=== PATIENT | female | born 1970 | race African-American/Black ===

== ENCOUNTER 2018-01-23 08:10 | Emergency (ER) | payer OTHER ==
[~2018-01-23] VITALS: Ht 170.2 cm; Wt 63.6 kg
[~2018-01-23 08:10] MED LIST: NO MEDS
[2018-01-23] MEDS ORDERED: METR500 PO (08:17)
[2018-01-23] MEDS ORDERED: MORP15 PO (08:17)
[2018-01-23] MEDS ORDERED: IBUP-2070 PO (08:17)
[2018-01-23] MEDS ORDERED: HYDROmorphone 2 MG/ML SYRINGE IVP ONE (09:00)
[2018-01-23] MEDS ORDERED: KETOROLAC TROMETHAMINE 30 MG/ML VIAL IVP ONE (09:00)
[2018-01-23] MEDS ORDERED: ONDANSETRON HCL 4 MG/2 ML VIAL IVP ONE (09:00)
[2018-01-23] MEDS ORDERED: SODIUM CHLORIDE 0.9% 1,000 ML IV ONE (09:00)
[2018-01-23 09:11] LABS: BASOPHILS % (AUTO) 0.3 % (0.0-2.0); EOSINOPHILS % (AUTO) 3.9 % (1.0-6.0); HEMATOCRIT 33.8 % (36-46); HEMOGLOBIN 11.3 g/dL (12.0-16.0); LYMPHOCYTES # (AUTO) 0.7 K/uL (1.0-4.8); MEAN CORPUSCULAR HEMOGLOBIN 28.2 pg (26.0-34.0); MEAN CORPUSCULAR HGB CONC 33.6 G/dL (31.0-37.0); MEAN CORPUSCULAR VOLUME 84 fL (80-100); MONOCYTES # (AUTO) 0.5 K/uL (0.1-1.0); MONOCYTES % (AUTO) 5.8 % (2.0-9.0); NEUTROPHILS # (AUTO) 7.4 K/uL (1.8-7.7); PLATELET COUNT (AUTO) 234 K/uL (150-450); RED BLOOD CELL COUNT(AUTO) 4.03 MIL/uL (4.00-5.20); RED CELL DISTRIBUTION WIDTH 15.2 % (11.5-14.5)
[2018-01-23 09:36] LABS: ALANINE AMINOTRANSFERASE 54 U/L (12-78); ALBUMIN 2.8 g/dL (3.4-5.0); ALKALINE PHOSPHATASE 99 U/L (46-116); ANION GAP 5 mmol/L (8-16); ASPARTATE AMINOTRANSFERASE 46 U/L (15-37); BILIRUBIN,TOTAL 0.2 mg/dL (0.1-1.0); CALCIUM, TOTAL 8.3 mg/dL (8.8-10.5); CARBON DIOXIDE 28 mmol/L (22-29); CHLORIDE 101 mmol/L (98-107); CREATININE 0.74 mg/dL (0.60-1.30); GLOMERULAR FILTR. RATE CALC > 60 mL/min (>60); GLUCOSE,RANDOM 98 mg/dL (70-110); SODIUM SERUM 134 mmol/L (136-145); TOTAL PROTEIN, SERUM 6.7 g/dL (6.4-8.2); UREA NITROGEN, BLOOD 7 mg/dL (7-18)
[2018-01-23 10:42] LABS: APPEARANCE,URINE CLOUDY (CLEAR); BILIRUBIN,URINE NEGATIVE (NEGATIVE); GLUCOSE, URINE (UA) NEGATIVE (NEGATIVE); KETONES,URINE NEGATIVE (NEGATIVE); LEUKOCYTE ESTERASE ,URINE SMALL (NEGATIVE); NITRATE,URINE POSITIVE (NEGATIVE); OCCULT BLOOD,URINE LARGE (NEGATIVE); PROTEIN,URINE TRACE (NEGATIVE)
[2018-01-23 11:02] LABS: BACTERIA,URINE Many /HPF (None Seen); SQUAMOUS EPITHELIAL CELL,UR Few /LPF (None Seen)
[2018-01-23 11:27] VITALS: BP 125/80
== END 2018-01-23 12:11 | disposition home or self-care (01) ==
LOC: EMS 08:10
DX: D25.9 Leiomyoma of uterus, unspecified (principal); N39.0 Urinary tract infection, site not specified; J45.909 Unspecified asthma, uncomplicated; F17.210 Nicotine dependence, cigarettes, uncomplicated
CPT/HCPCS: 36415; 80053; 81001; 83605; 84703; 85025; 87077; 87086; 87186; 87491; 87591; 96374; 96375; 99284; J1170; J1885; J2405; J7030

== ENCOUNTER 2019-08-07 22:29 | Emergency (ER) | payer OTHER ==
[~2019-08-07] VITALS: Ht 170.2 cm; Wt 78.6 kg
[~2019-08-07 22:29] MED LIST changes: +IBUP-2070 PO; +METR500 PO; +MORP15 PO
[2019-08-07] MEDS ORDERED: IPRATROPIUM BROMIDE 0.5 MG/2.5 ML NEB SOLUTION NEB ONE ×2 (22:45→23:15)
[2019-08-07] MEDS ORDERED: ALBUTEROL SULFATE 2.5 MG/0.5 ML NEB SOLUTION NEB ONE (22:45)
[2019-08-07] MEDS ORDERED: 0.9% SODIUM CHLORIDE 5 ML NEB SOLUTION NEB ONE ×2 (22:59→23:12)
[2019-08-07] MEDS ORDERED: ALBUTEROL SULFATE 5 MG/ML 20 ML NEB SOLN [BULK] NEB ONE (23:15)
[2019-08-07] MEDS ORDERED: EPINEPHrine 1:1,000 [1 MG/ML] AMP SQ ONE (23:15)
[2019-08-07] MEDS ORDERED: MethylPREDNISolone SOD SUCC 125 MG/2 ML VIAL IVP ONE (23:15)
[2019-08-07 23:28] LABS: BASOPHILS % (AUTO) 0.5 % (0.0-2.0); EOSINOPHILS % (AUTO) 4.5 % (1.0-6.0); HEMATOCRIT 29.1 % (36-46); HEMOGLOBIN 9.5 g/dL (12.0-16.0); LYMPHOCYTES # (AUTO) 2.4 K/uL (1.0-4.8); LYMPHOCYTES % (AUTO) 31.3 % (22.0-44.0); MEAN CORPUSCULAR HEMOGLOBIN 25.5 pg (26.0-34.0); MEAN CORPUSCULAR HGB CONC 32.7 G/dL (31.0-37.0); MEAN CORPUSCULAR VOLUME 78 fL (80-100); MONOCYTES # (AUTO) 0.7 K/uL (0.1-1.0); MONOCYTES % (AUTO) 9.7 % (2.0-9.0); PLATELET COUNT (AUTO) 383 K/uL (150-450); RED BLOOD CELL COUNT(AUTO) 3.74 MIL/uL (4.00-5.20); RED CELL DISTRIBUTION WIDTH 16.6 % (11.5-14.5)
[2019-08-07 23:39] LABS: ANION GAP 12 mmol/L (8-16); CALCIUM, TOTAL 8.8 mg/dL (8.8-10.5); CARBON DIOXIDE 23 mmol/L (22-29); CHLORIDE 105 mmol/L (98-107); CREATININE 0.83 mg/dL (0.60-1.30); GLOMERULAR FILTR. RATE CALC > 60 mL/min (>60); GLUCOSE,RANDOM 71 mg/dL (70-110); POTASSIUM 3.2 mmol/L (3.5-5.1); SODIUM SERUM 140 mmol/L (136-145); UREA NITROGEN, BLOOD 19 mg/dL (7-18)
[2019-08-07 23:51] LABS: HCG,QUANTITATIVE < 1 mIU/mL (0-6)
[2019-08-08 02:00] VITALS: BP 129/77
== END 2019-08-08 02:35 | disposition home or self-care (01) ==
LOC: EMS 22:32
DX: J45.901 Unspecified asthma with (acute) exacerbation (principal); F17.210 Nicotine dependence, cigarettes, uncomplicated; Z98.890 Other specified postprocedural states
CPT/HCPCS: 36415; 71045; 80048; 84702; 85025; 94640; 94644; 96372; 96374; 99285; 99406; J0171; J2930

== ENCOUNTER 2019-12-28 07:21 | Emergency (ER) | payer OTHER ==
[~2019-12-28] VITALS: Ht 170.2 cm; Wt 80.5 kg
[2019-12-28 10:10] VITALS: BP 134/79
== END 2019-12-28 10:15 | disposition home or self-care (01) ==
LOC: EMS 07:25
DX: S83.92XA Sprain of unspecified site of left knee, initial encounter (principal); J45.909 Unspecified asthma, uncomplicated; F17.210 Nicotine dependence, cigarettes, uncomplicated; W01.0XXA Fall on same level from slipping, tripping and stumbling without subsequent striking against object, initial encounter; Y93.89 Activity, other specified; Y92.89 Other specified places as the place of occurrence of the external cause; Y99.8 Other external cause status
CPT/HCPCS: 29505

== ENCOUNTER 2020-04-12 00:17 | Emergency (ER) | payer OTHER ==
[~2020-04-12] VITALS: Ht 170.2 cm; Wt 79.5 kg
[2020-04-12] MEDS ORDERED: IPRA4AER IH (00:27)
[2020-04-12] MEDS ORDERED: ALBUTEROL SULFATE 5 MG/ML 20 ML NEB SOLN [BULK] NEB ONE ×2 (00:32→00:45)
[2020-04-12] MEDS ORDERED: IPRATROPIUM BROMIDE 0.5 MG/2.5 ML NEB SOLUTION NEB ONE ×2 (00:32→00:45)
[2020-04-12] MEDS ORDERED: MethylPREDNISolone SOD SUCC 125 MG/2 ML VIAL IVP ONE (00:45)
[2020-04-12 02:36] VITALS: BP 134/72
[2020-04-12] MEDS ORDERED: ALBUTEROL SULFATE HFA 90 MCG/PUFF 8 GM INHALER IH ONE (02:45)
== END 2020-04-12 02:47 | disposition home or self-care (01) ==
LOC: EMS 00:19
DX: J45.901 Unspecified asthma with (acute) exacerbation (principal); F17.210 Nicotine dependence, cigarettes, uncomplicated
CPT/HCPCS: 71045; 94640; 96374; 99284; J2930; 94644; J3535; J7611

== ENCOUNTER 2021-01-16 20:31 | Emergency (ER) | payer OTHER ==
[~2021-01-16] VITALS: Ht 170.2 cm; Wt 77.3 kg
[~2021-01-16 20:31] MED LIST changes: -IBUP-2070 PO; +IPRA4AER IH; -METR500 PO; -MORP15 PO; -NO MEDS
[2021-01-16 23:15] LABS: BASOPHILS % (AUTO) 0.9 % (0.0-2.0); EOSINOPHILS % (AUTO) 8.5 % (1.0-6.0); LYMPHOCYTES # (AUTO) 1.4 K/uL (1.0-4.8); LYMPHOCYTES % (AUTO) 26.7 % (22.0-44.0); MEAN CORPUSCULAR HEMOGLOBIN 25.9 pg (26.0-34.0); MEAN CORPUSCULAR HGB CONC 32.1 G/dL (31.0-37.0); MEAN CORPUSCULAR VOLUME 81 fL (80-100); MONOCYTES # (AUTO) 0.5 K/uL (0.1-1.0); MONOCYTES % (AUTO) 9.8 % (2.0-9.0); NEUTROPHILS # (AUTO) 2.7 K/uL (1.8-7.7); NEUTROPHILS % (AUTO) 54.1 % (40.0-70.0); PLATELET COUNT (AUTO) 440 K/uL (150-450); RED CELL DISTRIBUTION WIDTH 17.7 % (11.5-14.5)
[2021-01-16 23:25] LABS: ANION GAP 10 mmol/L (8-16); CALCIUM, TOTAL 8.6 mg/dL (8.8-10.5); CARBON DIOXIDE 26 mmol/L (22-29); CHLORIDE 107 mmol/L (98-107); CREATININE 0.77 mg/dL (0.60-1.30); GLOMERULAR FILTR. RATE CALC > 60 mL/min (>60); GLUCOSE,RANDOM 79 mg/dL (70-110); POTASSIUM 3.2 mmol/L (3.5-5.1); SODIUM SERUM 143 mmol/L (136-145); UREA NITROGEN, BLOOD 16 mg/dL (7-18)
[2021-01-16 23:41] LABS: ALANINE AMINOTRANSFERASE 21 U/L (12-78); ALBUMIN 3.3 g/dL (3.4-5.0); ALKALINE PHOSPHATASE 62 U/L (46-116); ASPARTATE AMINOTRANSFERASE 20 U/L (15-37); BILIRUBIN,TOTAL 0.5 mg/dL (0.1-1.0); FREE T4 (FREE THYROXINE) 1.05 ng/dL (0.76-1.46); HCG,QUANTITATIVE < 1 mIU/mL (0-6); THYROID STIMULATING HORMONE 0.57 uIU/mL (0.36-3.74); TOTAL PROTEIN, SERUM 6.6 g/dL (6.4-8.2)
[2021-01-17 01:14] VITALS: BP 130/80
== END 2021-01-17 01:29 | disposition home or self-care (01) ==
LOC: EMS 20:33
DX: D50.9 Iron deficiency anemia, unspecified (principal)
CPT/HCPCS: 71045; 80053; 83880; 84439; 84443; 84484; 84702; 85025; 85379; 93005; 93970; 99285; 36415-L1; 36415-TC

== ENCOUNTER 2021-07-31 17:48 | Emergency (ER) | payer OTHER ==
[~2021-07-31] VITALS: Ht 170.2 cm; Wt 77.3 kg
[2021-07-31 19:15] VITALS: BP 169/106
== END 2021-08-01 01:50 | disposition left against medical advice (07) ==
LOC: EMS 17:50
DX: K08.89 Other specified disorders of teeth and supporting structures (principal); Z53.21 Procedure and treatment not carried out due to patient leaving prior to being seen by health care provider

== ENCOUNTER 2022-09-01 23:33 | Emergency (ER) | payer OTHER ==
[~2022-09-01] VITALS: Ht 170.2 cm; Wt 81.8 kg
[2022-09-01] MEDS ORDERED: KETOROLAC TROMETHAMINE 30 MG/ML VIAL IVP ONE (23:45)
[2022-09-02] MEDS ORDERED: SODIUM CHLORIDE 0.9% 100 ML ONE (00:04)
[2022-09-02] MEDS ORDERED: IOHEXOL 350 MG/ML 100 ML VIAL ONE (00:04)
[2022-09-02 00:11] LABS: BASOPHILS % (AUTO) 0.7 % (0.0-2.0); EOSINOPHILS % (AUTO) 1.1 % (1.0-6.0); HEMATOCRIT 32.7 % (36-46); HEMOGLOBIN 10.6 g/dL (12.0-16.0); LYMPHOCYTES # (AUTO) 1.5 K/uL (1.0-4.8); LYMPHOCYTES % (AUTO) 17.9 % (22.0-44.0); MEAN CORPUSCULAR HGB CONC 32.4 G/dL (31.0-37.0); MEAN CORPUSCULAR VOLUME 80 fL (80-100); MONOCYTES # (AUTO) 0.7 K/uL (0.1-1.0); MONOCYTES % (AUTO) 8.3 % (2.0-9.0); NEUTROPHILS # (AUTO) 6.2 K/uL (1.8-7.7); PLATELET COUNT (AUTO) 324 K/uL (150-450); RED BLOOD CELL COUNT(AUTO) 4.07 MIL/uL (4.00-5.20); RED CELL DISTRIBUTION WIDTH 14.9 % (11.5-14.5)
[2022-09-02 00:14] LABS: ANION GAP 12 mmol/L (8-16); CALCIUM, TOTAL 9.5 mg/dL (8.8-10.5); CARBON DIOXIDE 24 mmol/L (22-29); CHLORIDE 105 mmol/L (98-107); CREATININE 0.98 mg/dL (0.60-1.30); GLOMERULAR FILTR. RATE CALC > 60 mL/min (>60); GLUCOSE,RANDOM 94 mg/dL (70-110); POTASSIUM 3.9 mmol/L (3.5-5.1); SODIUM SERUM 141 mmol/L (136-145); UREA NITROGEN, BLOOD 18 mg/dL (7-18)
[2022-09-02 00:25] LABS: ALANINE AMINOTRANSFERASE 19 U/L (12-78); ALKALINE PHOSPHATASE 104 U/L (46-116); ASPARTATE AMINOTRANSFERASE 22 U/L (15-37); BILIRUBIN,TOTAL 0.4 mg/dL (0.1-1.0); HCG,QUANTITATIVE 3 mIU/mL (0-6); TOTAL PROTEIN, SERUM 8.3 g/dL (6.4-8.2)
[2022-09-02] MEDS ORDERED: IBUP-1492 PO (01:00)
[2022-09-02] MEDS ORDERED: AMOX1TAB16 PO (01:00)
[2022-09-02] MEDS ORDERED: AMOX TR/POT CLAV 875 MG/125 MG TABLET PO ONE (01:00)
[2022-09-02 01:53] VITALS: BP 159/99
== END 2022-09-02 02:21 | disposition home or self-care (01) ==
LOC: EMS 23:34
DX: K08.89 Other specified disorders of teeth and supporting structures (principal); J45.909 Unspecified asthma, uncomplicated; I10 Essential (primary) hypertension; F17.210 Nicotine dependence, cigarettes, uncomplicated; Z98.890 Other specified postprocedural states
CPT/HCPCS: 99285; 80053; 84702; 85025; 36415; 96374; 70487; J1885; Q9967; J7050

== ENCOUNTER 2024-06-04 23:06 | Inpatient (IN) | payer OTHER, MEDICAID ==
[~2024-06-04] VITALS: Ht 170.2 cm; Wt 85.7 kg
[~2024-06-04 23:06] MED LIST changes: +AMOX-457 PO; +IBUP-1492 PO
[2024-06-04] MEDS ORDERED: ZOLPIDEM TARTRATE 10 MG TABLET PO PRN ×2 (23:30→23:45)
[2024-06-04] MEDS ORDERED: HALOPERIDOL 5 MG TABLET PO PRN ×2 (23:30→23:45)
[2024-06-04] MEDS ORDERED: LORazepam 2 MG TABLET PO PRN (23:30)
[2024-06-05 02:21] LABS: GLUCOMETER DEV NAME(LOC) POC.BV; POC SARS-COV2 AG, FIA NEGATIVE (NEGATIVE)
[2024-06-05 02:25] VITALS: RESP 18
[2024-06-05] MEDS: LORazepam 2 MG/ML VIAL IM ONE (02:51)
[2024-06-05] MEDS: DiphenhydrAMINE HCL 50 MG/ML VIAL IM ONE (02:52)
[2024-06-05] MEDS: ChlorproMAZINE HCL 50 MG/2 ML AMP IM ONE (02:52)
[2024-06-05] MEDS ORDERED: CloNIDine HCL 0.1 MG TABLET PO PRN (05:15)
[2024-06-05] MEDS ORDERED: IBUPROFEN 600 MG TABLET PO PRN (05:15)
[2024-06-05] MEDS ORDERED: MAGNESIUM HYDROXIDE SUSPENSION 30 ML UDCUP PO PRN (05:15)
[2024-06-05] MEDS ORDERED: MAG HYDROX/ALUMINUM HYD/SIMETH ES 30 ML SUSPENSION UDCUP PO PRN (05:15)
[2024-06-05] MEDS ORDERED: LOPERAMIDE HCL 2 MG CAPSULE PO PRN (05:15)
[2024-06-05] MEDS ORDERED: ACETAMINOPHEN 325 MG TABLET PO PRN (05:15)
[2024-06-05] MEDS ORDERED: ONDANSETRON 4 MG TABLET PO PRN (05:15)
[2024-06-05] MEDS ORDERED: OMEPRAZOLE 20 MG CAPSULE PO PRN (05:15)
[2024-06-05] MEDS ORDERED: BACITRACIN 28 GM OINTMENT TP PRN (05:15)
[2024-06-05] MEDS ORDERED: BENZOCAINE/MENTHOL LOZENGE PO PRN (05:15)
[2024-06-05] MEDS ORDERED: PETROLATUM,WHITE 28 GM JELLY TP PRN (05:15)
[2024-06-05] MEDS ORDERED: DOCUSATE SODIUM 100 MG CAPSULE PO PRN (05:15)
[2024-06-05] MEDS ORDERED: ALBUTEROL SULFATE HFA 90 MCG/PUFF 8 GM INHALER IH PRN (05:15)
[2024-06-05 08:29] VITALS: RESP 18
[2024-06-05] MEDS: MELATONIN 5 MG TABLET PO SCH (20:39)
[2024-06-05 21:21] VITALS: BP 109/64; PULSE 92; RESP 18; TEMP 97.1
[2024-06-06 08:14] VITALS: RESP 16
[2024-06-06] MEDS: DIVALPROEX SODIUM 500 MG ER TABLET PO SCH (09:00)
[2024-06-06] MEDS: OLANZapine 5 MG RAPDIS TABLET PO SCH (09:00)
[2024-06-06 20:22] VITALS: RESP 18
[2024-06-07 08:22] VITALS: RESP 16
[2024-06-07 20:27] VITALS: BP 118/68; PULSE 96; RESP 18; TEMP 97.5; O2SAT 99
[2024-06-08 08:26] VITALS: RESP 16
[2024-06-08] MEDS: INFLUENZA VIRUS VACCINE TVS (6MO+) 2024-25/PF 45 MCG/0.5 ML SYRINGE IM. ONE (08:31)
[2024-06-08 20:19] VITALS: BP 119/82; PULSE 120; RESP 18; TEMP 97.9; O2SAT 98
[2024-06-09 08:31] LABS: APPEARANCE,URINE HAZY (CLEAR); BILIRUBIN,URINE NEGATIVE (NEGATIVE); COLOR,URINE YELLOW (YELLOW); GLUCOSE, URINE (UA) NEGATIVE (NEGATIVE); KETONES,URINE NEGATIVE (NEGATIVE); LEUKOCYTE ESTERASE ,URINE SMALL (NEGATIVE); NITRATE,URINE POSITIVE (NEGATIVE); OCCULT BLOOD,URINE NEGATIVE (NEGATIVE); PROTEIN,URINE NEGATIVE (NEGATIVE); SPECIFIC GRAVITIY, URINE 1.016 (1.003-1.030); UROBILINOGEN,URINE <=1.0 mg/dL (<=1.0)
[2024-06-09 08:35] VITALS: RESP 18
[2024-06-09 08:36] LABS: ALCOHOL, URINE DRUG SCREEN NEGATIVE (NEGATIVE); AMPHET/METH SCREEN,URINE NEGATIVE (NEGATIVE); BARBITURATE SCREEN, URINE NEGATIVE (NEGATIVE); BENZODIAZEPINES SCREEN,URINE NEGATIVE (NEGATIVE); CANNABINOID SCREEN,URINE NEGATIVE (NEGATIVE); COCAINE SCREEN,URINE NEGATIVE (NEGATIVE); METHADONE SCREEN, URINE NEGATIVE (NEGATIVE); OPIATE SCREEN,URINE NEGATIVE (NEGATIVE); PHENCYCLIDINE SCREEN,URINE NEGATIVE (NEGATIVE)
[2024-06-09 08:58] LABS: RBC,URINE None Seen /HPF (0-2)
[2024-06-09 08:59] LABS: BACTERIA,URINE Many /HPF (None Seen); SQUAMOUS EPITHELIAL CELL,UR Few /LPF (None Seen)
[2024-06-09 20:12] VITALS: BP 115/73; PULSE 75; RESP 16; TEMP 97.3; O2SAT 98
[2024-06-10 08:08] VITALS: RESP 16
[2024-06-10] MEDS: LORazepam 2 MG TABLET PO PRN (08:44)
[2024-06-10 20:16] VITALS: BP 102/65; PULSE 95; RESP 18; TEMP 96.8; O2SAT 98
[2024-06-11 08:08] VITALS: RESP 16
[2024-06-11 20:08] VITALS: BP 100/56; PULSE 92; RESP 17; TEMP 98; O2SAT 96
[2024-06-12 08:03] VITALS: RESP 17
[2024-06-12] MEDS: DULoxetine HCL 20 MG CAPSULE PO SCH (09:00)
[2024-06-12] MEDS ORDERED: OLAN5TAB94 PO (16:19)
[2024-06-12] MEDS ORDERED: DIVA-153 PO (16:19)
[2024-06-12] MEDS ORDERED: MELA5TAB40 PO (16:19)
[2024-06-12] MEDS ORDERED: DULO20CA71 PO (16:19)
[2024-06-12] MEDS: OLANZapine 10 MG RAPDIS TABLET PO SCH (17:00)
[2024-06-12 20:00] VITALS: BP 134/94; PULSE 84; RESP 16; TEMP 97.4; O2SAT 99
[2024-06-13 08:16] VITALS: BP 144/80; PULSE 71; RESP 16; TEMP 96.8; O2SAT 98
== END 2024-06-13 11:30 | disposition home or self-care (01) | DRG 885 ==
LOC: B3A 06-05 00:35
PROVIDERS: ADMIT Psychiatry & Neurology Psychiatry; ATTEND Psychiatry & Neurology Psychiatry
PROC: GZHZZZZ Group Psychotherapy (ICD-10-PCS; principal; 2024-06-06)
PROC: GZ51ZZZ Individual Psychotherapy, Behavioral (ICD-10-PCS; 2024-06-06)
DX: F25.0 Schizoaffective disorder, bipolar type (principal); R45.851 Suicidal ideations; F41.9 Anxiety disorder, unspecified; Z56.0 Unemployment, unspecified; Z20.822 Contact with and (suspected) exposure to COVID-19; I10 Essential (primary) hypertension; K59.00 Constipation, unspecified; Z60.8 Other problems related to social environment; Z91.148 Patient's other noncompliance with medication regimen for other reason; G47.00 Insomnia, unspecified; J44.9 Chronic obstructive pulmonary disease, unspecified; Z55.9 Problems related to education and literacy, unspecified; Z59.9 Problem related to housing and economic circumstances, unspecified; Z63.9 Problem related to primary support group, unspecified; Z65.3 Problems related to other legal circumstances
CPT/HCPCS: 80307; 81001; 87077; 87086; 87186; J1200; J2060; J3230